=== PATIENT | male | born 1985 | race Two or more races ===

== ENCOUNTER 2016-09-27 14:51 | Inpatient (IN) | payer BC ==
[2016-09-27] MEDS ORDERED: ACETAMINOPHEN 325 MG TAB PO ONE (15:24)
--- NOTE | 2016-09-27 15:28 | Emergency Department Record ---
History of Present Illness - General Chief Complaint: Fever Stated Complaint: FEVER, CHILLS Time Seen by Provider: 09/27/16 15:08 Source: Patient, Family Mode of Arrival: Ambulatory Limitations: No limitations - History of Present Illness Initial Comments: The patient is here due to having a fever and chills for 3 days. The patient has a hx of CML and last had chemo over 4 weeks ago. He has also had a cough with sputum production, a ST, and body aches. The patient did call [facility] and was told to go to the ER for lab work and a CXR. The patient and also deny any GROVER, neck pain or confusion. MD Complaint: Fever, Malaise, Weakness Onset/Timin -: Days(s) Maximum Temperature: 101.7 F Temperature Source: Oral Context: On chemotherapy Associated Symptoms: Chills, Sore throat, Other Treatments Prior to Arrival: Ibuprofen Treatment Prior to Arrival Comment:: Motrin 6:00 am - Related Data Home Medications Medication Instructions Recorded Confirmed Last Taken Acyclovir [Zovirax] 400 mg PO BID 12/10/15 09/27/16 09/27/16 Prochlorperazine Maleate 10 mg PO DAILY PRN 06/07/16 09/27/16 08/17/16 [Compazine] Ponatinib HCl [Iclusig] 30 mg PO DAILY 06/22/16 09/27/16 09/27/16 Morphine Sulfate [Msir] 15 mg PO Q4HR PRN 06/29/16 09/27/16 07/05/16 Lorazepam [Ativan] 2 ml PO QHS 08/20/16 09/27/16 08/19/16 Ibuprofen [Motrin 600Mg] 600 mg PO Q6H 09/27/16 09/27/16 09/27/16 Allergies Allergy/AdvReac Type Severity Reaction Status Date / Time Sulfa (Sulfonamide Allergy SWELLING Verified 09/27/16 14:59 Antibiotics) (GENERAL) Travel Screening - Travel/Exposure Within Last 30 Days Have you traveled within the last 30 days?: No Review of Systems Constitutional: Reports: Chills, Fever, Malaise Eyes: Denies: Eye discharge ENT: Denies: Congestion Respiratory: Reports: Cough. Denies: Dyspnea Past Medical History - SOCIAL HISTORY Smoking Status: Former smoker Alcohol Use: None Drug Use: None - RESPIRATORY Hx Respiratory Disorders: No - CARDIOVASCULAR Hx Cardio Disorders: No - NEURO Hx Neuro Disorders: No - GI Hx GI Disorders: No - Hx Genitourinary Disorders: No - ENDOCRINE Hx Endocrine Disorders: No - MUSCULOSKELETAL Hx Musculoskeletal Disorders: No - PSYCH Hx Psych Problems: No - HEMATOLOGY/ONCOLOGY Hx Hematology/Oncology Disorders: Yes Hx Cancer: Yes (Leukemia) Hx Chemotherapy: Yes (currently) Family Medical History Any Significant Family History?: Yes Hx Cancer: Mother Physical Exam - General General Appearance: Alert, Oriented x3, Cooperative, No acute distress - Head Head exam: Atraumatic, Normocephalic, Normal inspection - Eye Eye exam: Normal appearance, PERRL - ENT Throat exam: Normal inspection. negative: Tonsillar erythema, Tonsillar exudate - Neck Neck exam: Normal inspection, Full ROM. negative: Tenderness - Respiratory Respiratory exam: Normal lung sounds bilaterally. negative: Respiratory distress, Stridor, Wheezes - Cardiovascular Cardiovascular Exam: Regular rate, Normal rhythm, Normal heart sounds - GI/Abdominal GI/Abdominal exam: Soft, Normal bowel sounds. negative: Tenderness - Extremities Extremities exam: Normal inspection, Full ROM, Normal capillary refill. negative: Tenderness - Neurological Neurological exam: Alert, Normal gait. negative: Abnormal gait, Motor sensory deficit Course Vital Signs 09/27/16 14:55 Temperature 100.3 F H Pulse Rate 89 Respiratory 18 Rate Blood Pressure 140/74 Pulse Ox 97 - Reevaluation(s) Reevaluation #1: The patient is doing better. His repeat temp is 100.9 orally. He is feeling better and denies new issues. 09/27/16 16:46 Reevaluation #2: The patient is doing very well at this time. He denies any pain or discomfort. His repeat temp is now 100.6. I did consult with the patient's Oncology Fellow at [facility] and did discuss the labs, UA and xray results. Due to the patient's hx the Fellow felt that he should be treated with IV Abx for Community Acquired Pneumonia and did feel he could be treated here at [facility]. I then did discuss the case with Lucero WATTERS) and she does accept the patient to the hospital. 09/27/16 17:10 Medical Decision Making - Data Complexity MDM Data: Labs Ordered and/or Reviewed, X-Ray Ordered and/or Reviewed - Lab Data Result diagrams: 09/27/16 15:45 09/27/16 15:35 - Radiology Data Radiology results: Report reviewed (CXR: Neg for any acute infiltrate.) Disposition Disposition: Admit Clinical Impression: Pneumonia Qualifiers: Pneumonia type: due to unspecified organism Laterality: unspecified laterality Lung location: unspecified part of lung Qualified Code(s): J18.9 - Pneumonia, unspecified organism Disposition: Still a Patient at [facility] Decision to Admit: Admit from ER Decision to Admit Date: 09/27/16 Decision to Admit Time: 17:15 Accepting Physician: Angela Time Discussed w/Accepting Physician: 17:15 Condition: (2) Stable Forms: Patient Portal Access Time of Disposition: 17:15
[2016-09-27 15:53] LABS: HEMATOCRIT 36.9 % (42.0-52.0); HEMOGLOBIN 12.1 gm/dl (14.0-18.0); MEAN CELL VOLUME 94.4 fl (81-97); MEAN CORPUSCULAR HEMOGLOBIN 30.9 pg (27-33); MEAN CORPUSCULAR HGB CONC 32.8 g/dl (32-36); MEAN PLATELET VOLUME 12.5 fl (7.4-10.4); PLATELET COUNT 96 K/uL (130-400); RED BLOOD COUNT 3.91 M/uL (4.40-5.70); RED CELL DISTRIBUTION WIDTH 14.9 % (11.5-14.5); WHITE BLOOD COUNT W/O DIFF 10.1 K/uL (4.2-12.2)
[2016-09-27] MEDS ORDERED: IBUPROFEN 600 MG TABLET PO ONE (15:55)
[2016-09-27 16:07] LABS: ANION GAP 15.9 (7-16); BLOOD UREA NITROGEN 11 mg/dL (9-20); C-REACTIVE PROTEIN 4.2 mg/dL (0.0-0.9); CARBON DIOXIDE 24.1 mmol/L (22-30); CREATININE 0.8 mg/dL (0.66-1.25); EST GLOMERULAR FILTRATION RATE > 60 ml/min; GLUCOSE,RANDOM 98 mg/dL (70-110)
[2016-09-27 16:20] LABS: URINE APPEARANCE CLEAR; URINE BILIRUBIN NEGATIVE (NEGATIVE); URINE BLOOD NEGATIVE (NEGATIVE); URINE COLOR YELLOW; URINE GLUCOSE (UA) NEGATIVE (NEGATIVE); URINE KETONE NEGATIVE (NEGATIVE); URINE LEUKOCYTE ESTERASE NEGATIVE (NEGATIVE); URINE NITRITE NEGATIVE (NEGATIVE); URINE PROTEIN NEGATIVE (NEGATIVE); URINE UROBILINOGEN 0.2 E.U./dL (0.20 - 1.00)
[2016-09-27] MEDS ORDERED: 0.9 % SODIUM CHLORIDE 1,000 ML BAG IV ONE (16:23)
[2016-09-27 16:33] LABS: ANISOCYTOSIS 1+; PLATELET ESTIMATE DECREASED (NORMAL)
[2016-09-27] MEDS ORDERED: CEFTRIAXONE SODIUM 1 GM in 0.9 % SODIUM CHLORIDE 100ML 100 ML IVPB ONE (16:56)
[2016-09-27] MEDS ORDERED: PROCHLORPERAZINE MALEATE 10 MG TABLET PO PRN (17:59)
[2016-09-27] MEDS ORDERED: AZITHROMYCIN 500 MG in 0.9 % SODIUM CHLORIDE 250ML 250 ML IVPB SCH (17:59)
[2016-09-27] MEDS: CEFTRIAXONE SODIUM 1 GM in 0.9 % SODIUM CHLORIDE 100ML 100 ML IVPB SCH (18:09)
[2016-09-27] MEDS ORDERED: PONATINIB HCL PO SCH (21:00)
[2016-09-27] MEDS: PONATINIB PO SCH (21:26)
[2016-09-27] MEDS: ACYCLOVIR 200 MG CAPSULE PO SCH (21:30)
[2016-09-27] MEDS ORDERED: LORAZEPAM PO SCH (22:00)
[2016-09-28] MEDS: MORPHINE SULFATE 15 MG TABLET PO PRN ×3 (00:49→12:08)
[2016-09-28] MEDS: 0.9 % SODIUM CHLORIDE 1000ML 1,000 ML IV PRN ×2 (00:50→18:10)
[2016-09-28] MEDS: CEFTRIAXONE SODIUM 1 GM in 0.9 % SODIUM CHLORIDE 100ML 100 ML IVPB SCH ×2 (05:58→18:00)
[2016-09-28] MEDS: ACETAMINOPHEN 500 MG TABLET PO PRN ×2 (06:00→14:14)
[2016-09-28 06:30] LABS: HEMATOCRIT 34.3 % (42.0-52.0); MEAN CELL VOLUME 94.5 fl (81-97); MEAN CORPUSCULAR HEMOGLOBIN 30.3 pg (27-33); MEAN CORPUSCULAR HGB CONC 32.1 g/dl (32-36); PLATELET COUNT 90 K/uL (130-400); RED BLOOD COUNT 3.63 M/uL (4.40-5.70); RED CELL DISTRIBUTION WIDTH 14.9 % (11.5-14.5); WHITE BLOOD COUNT W/O DIFF 7.8 K/uL (4.2-12.2)
[2016-09-28 06:45] LABS: ALB/GLOB RATIO 1.7 (1.1-1.8); ALBUMIN 4.1 gm/dL (3.5-5.0); ALKALINE PHOSPHATASE 82 U/L (38-126); ALT/SGPT 46 U/L (21-72); ANION GAP 13.6 (7-16); AST/SGOT 25 U/L (17-59); BILIRUBIN,TOTAL 0.13 mg/dL (0.2-1.3); BLOOD UREA NITROGEN 9 mg/dL (9-20); CARBON DIOXIDE 23.4 mmol/L (22-30); CREATININE 0.6 mg/dL (0.66-1.25); EST GLOMERULAR FILTRATION RATE > 60 ml/min; GLUCOSE,RANDOM 109 mg/dL (70-110); TOTAL PROTEIN 6.5 gm/dL (6.3-8.2)
[2016-09-28 06:56] LABS: PLATELET ESTIMATE DECREASED (NORMAL)
--- NOTE | 2016-09-28 07:30 | RADIOLOGY REPORT ---
EXAM: CHEST, TWO VIEWS HISTORY: FEVER, CHILLS, NONPRODUCTIVE COUGH FOR THREE DAYS. TECHNIQUE: Two views of the chest were obtained. Comparison: Chest x-ray 12/10/15. FINDINGS: Blunting of the costophrenic angles consistent with small pleural effusions. No consolidative change. The cardiomediastinal silhouette, diaphragm, and osseous structures are unremarkable. IMPRESSION: NEW SMALL BILATERAL PLEURAL EFFUSIONS. RECOMMEND FOLLOW-UP. JOB NUMBER: [id number] [facility]
--- NOTE | 2016-09-28 09:46 | History & Physical ---
History of Present Illness - Date of Service Date of Service for History & Physical: 09/28/16 - History of Present Illness Admitting Diagnosis: 1. Community Acquired Pneumonia with Pyrexia History of Present Illness: 31yo male with CC of fever. He has a history of CML for which he is receiving treatment at [facility] currently and is a former smoker. Patient reports feeling chilled and warm starting two days ago. His took his temperature and found him to have a fever of 101 that did resolve with some otc medication. They decided to give it a little more time and see if he would spike another temp which he did yesterday. he also began to have cough productive of sputum and sore throat. His called his oncologist, Dr. Elizalde and he recommended that he be evaluated in the ED. While in the ED, patient was found to have fever of 103 which improved with Tylenol. Patient had CXR which showed small b/l pleural effusions but no other acute process. CBC showed improved WBC, hgb and platelet count from previous visits. His CRP was elevated at 4.2. CMP was unremarkable. UA was negative. Blood cultures obtained. Dr. Saini did speak with oncologist on-call who recommended initiation of empiric therapy for CAP with rocephin and azithromycin. Patient was started on Iv antibiotics and admitted. 09/28/16- Patient states he is feeling better today. He says he is not feeling nearly as achey. He does report bilateral ear pain and some sore throat. He is not feeling short of breath, having nausea, abdominal pain or diarrhea. His appetite was improved this morning and he is tolerating PO fluids. Oncologist: Dr. Elizalde [facility] Travel Screening - Travel/Exposure Within Last 30 Days Have you traveled within the last 30 days?: No - Travel/Exposure Within Last Year Have you traveled outside the [place] in the last year?: No - Additonal Travel Details Have you been exposed to anyone with a communicable illness?: Yes Exposure Details:: common cold - Travel Symptoms Symptom Screening: Fever (GT 100.4) Review of Systems Constitutional: Reports: Chills, Fever, Malaise Eyes: Denies: Eye discharge ENT: Denies: Congestion Respiratory: Reports: Cough. Denies: Dyspnea Cardiovascular: Denies: Arrhythmia, Chest pain, Dyspnea on exertion Endocrine: Denies: Fatigue Gastrointestinal: Denies: Abdominal pain, Diarrhea, Nausea, Vomiting Musculoskeletal: Reports: Myalgia Skin: Denies: Bruising, Change in color Neurological: Denies: Abnormal gait, Confusion, Headache Psychiatric: Denies: Anxiety, Depression Hematological/Lymphatic: Reports: Anemia. Denies: Blood Clots Past Medical History - SOCIAL HISTORY Smoking Status: Former smoker Alcohol Use: Rare Drug Use: None - RESPIRATORY Hx Respiratory Disorders: No - CARDIOVASCULAR Hx Cardio Disorders: No Comment:: bradycardia with sleep - NEURO Hx Neuro Disorders: No - GI Hx GI Disorders: No - Hx Genitourinary Disorders: No - ENDOCRINE Hx Endocrine Disorders: No - MUSCULOSKELETAL Hx Musculoskeletal Disorders: No - PSYCH Hx Psych Problems: No - HEMATOLOGY/ONCOLOGY Hx Hematology/Oncology Disorders: Yes Hx Anemia: Yes Hx Cancer: Yes (Leukemia- CML) Hx Chemotherapy: Yes (currently) Hx Blood Transfusions: Yes (platelets and PRBC) Hx Blood Transfusion Reaction: No Family Medical History Any Significant Family History?: Yes Hx Cancer: Mother H&P Meds/Allergies - Allergies Allergies: Allergies Allergy/AdvReac Type Severity Reaction Status Date / Time Sulfa (Sulfonamide Allergy SWELLING Verified 09/27/16 14:59 Antibiotics) (GENERAL) - Home Medications Home Medications Medication Instructions Recorded Confirmed Last Taken Acyclovir [Zovirax] 400 mg PO BID 12/10/15 09/27/16 09/27/16 Prochlorperazine Maleate 10 mg PO DAILY PRN 06/07/16 09/27/16 08/17/16 [Compazine] Ponatinib HCl [Iclusig] 30 mg PO DAILY 06/22/16 09/27/16 09/27/16 Morphine Sulfate [Msir] 15 mg PO Q4HR PRN 06/29/16 09/27/16 07/05/16 Ibuprofen [Motrin 600Mg] 600 mg PO Q6H 09/27/16 09/27/16 09/27/16 - Active Medications Active Medications: Current Medications Acetaminophen (Tylenol 500mg Tab) 1,000 mg PO Q6H PRN PRN Reason: PAIN/TEMP Last Admin: 09/28/16 06:00 Dose: 1,000 mg Acyclovir (Zovirax) 400 mg PO BID EKTA Last Admin: 09/27/16 21:30 Dose: 400 mg Ceftriaxone Sodium 1 gm/ (Sodium Chloride) 100 mls @ 100 mls/hr IVPB Q12H EKTA Stop: 10/02/16 18:00 Last Admin: 09/28/16 05:58 Dose: 100 mls/hr Sodium Chloride () 1,000 mls @ 100 mls/hr IV .Q10H PRN PRN Reason: LARGE VOLUME IV Last Admin: 09/28/16 00:50 Dose: 100 mls/hr Azithromycin 500 mg/ Sodium (Chloride) 250 mls @ 250 mls/hr IVPB Q24H [facility] Stop: 10/03/16 19:01 Morphine Sulfate (Msir) 15 mg PO Q4HR PRN PRN Reason: Pain - General Stop: 10/04/16 18:00 Last Admin: 09/28/16 06:05 Dose: 15 mg Patient Own Med: (Ponatinib 15 Mg) 2 each PO 2100 EKTA Last Admin: 09/27/16 21:26 Dose: 2 each Prochlorperazine Maleate (Compazine) 10 mg PO DAILY PRN PRN Reason: NAUSEA Physical Exam - Vital Signs Vital Signs: Vital Signs - Last 24 Hrs Temp Pulse Resp BP Pulse Ox 09/28/16 09:10 97.9 F 09/28/16 06:42 101.1 F H 09/28/16 06:00 102.6 F H 86 20 135/69 95 09/27/16 22:40 98.8 F 72 16 121/61 98 09/27/16 18:31 88 20 09/27/16 18:11 100.5 F H 09/27/16 18:05 99.5 F 91 H 18 136/68 97 - General General Appearance: Alert, Oriented x3, Cooperative, No acute distress Limitations: No limitations - Head Head exam: Atraumatic, Normocephalic, Normal inspection - Eye Eye exam: Normal appearance, PERRL - ENT Throat exam: Normal inspection. negative: Tonsillar erythema, Tonsillar exudate - Neck Neck exam: Normal inspection, Full ROM. negative: Tenderness - Respiratory Respiratory exam: Normal lung sounds bilaterally. negative: Respiratory distress, Stridor, Wheezes - Cardiovascular Cardiovascular Exam: Regular rate, Normal rhythm, Normal heart sounds Peripheral Pulses: 2+: Radial (R), Radial (L), Dorsalis Pedis (R), Dorsalis Pedis (L) - GI/Abdominal GI/Abdominal exam: Soft, Normal bowel sounds. negative: Tenderness - Rectal Rectal exam: Deferred - Extremities Extremities exam: Normal inspection, Full ROM, Normal capillary refill. negative: Tenderness - Neurological Neurological exam: Alert, Normal gait. negative: Abnormal gait, Motor sensory deficit Results - Labs Result Diagrams: 09/28/16 05:55 09/28/16 05:55 Labs Last 24 Hours: Laboratory Results - last 24 hr 09/28/16 09/28/16 05:55 05:55 WBC 7.8 RBC 3.63 L Hgb 11.0 L Hct 34.3 L MCV 94.5 MCH 30.3 MCHC 32.1 RDW 14.9 H Plt Count 90 L Neutrophils % 58.0 Band Neutrophils % 5.0 Lymphocytes % 26.0 Monocytes % 11.0 H Eosinophils % Not Reportable Basophils % Not Reportable Platelet Estimate Decreased RBC Morphology Normal Sodium 138 Potassium 4.2 Chloride 101 Carbon Dioxide 23.4 Anion Gap 13.6 BUN 9 Creatinine 0.6 L Estimated GFR > 60 Random Glucose 109 Calcium 8.6 Total Bilirubin 0.13 L AST 25 ALT 46 Alkaline Phosphatase 82 Total Protein 6.5 Albumin 4.1 Globulin 2.4 Albumin/Globulin Ratio 1.7 - Imaging and Cardiology Chest x-ray Status: Report reviewed (b/l small pleural effusions) VTE H&P Assessment - Risk for VTE Risk for VTE: Yes Risk Level: Moderate Risk Assessment Date: 09/28/16 Risk Assessment Time: 14:39 VTE Orders Placed or Will Be Placed: No VTE Reason for No Prophylaxis: Contraindicated (plt count <100,000) Plan - Detailed Diagnosis and Plan (1) Fever Current Visit: Yes Status: Acute Qualifiers: Fever type: unspecified Qualified Code(s): R50.9 - Fever, unspecified Base Code: R50.9 - FEVER, UNSPECIFIED Comment: 09/28/16- Tmax of 103 upon admission. Patient was afebrile through the evening but spiked a fever this morning of 102.6 that improved with tylenol. CXR showed b/l small pleural effusions but no obvious airspace disease, UA negative for infection. Blood cultures obtained and pending. Patient started on empiric abx as recommended by oncologist. WBC count stable at 7.8. CRP up to 6.3 from 4.2 in patient with known malignancy. Last Chemo treatment was 4 weeks ago at [facility] with Dr. Elizalde. -ordered influenza screen, which returned negative. Fever could still be 2/2 viral URI. -Will continue empiric CAP coverage with Rocephin 1gm IV q24H and azithromycin 250mg IV daily. -Left message on M-line for Dr. Elizalde to update him on patient's clinical course -repeat labs qam (2) Leukemia Current Visit: Yes Status: Acute Qualifiers: Leukemia type: chronic, unspecified type Leukemia Active/Remission status: relapsed Qualified Code(s): C95.12 - Chronic leukemia of unspecified cell type, in relapse Base Code: C95.90 - LEUKEMIA, UNSPECIFIED NOT HAVING ACHIEVED REMISSION Comment: 09/28/16- patient currently being treated for CML with Dr. Elizalde. Last chemotherapy date was 4 weeks ago per patient's -continue Iclusig as prescribed by Dr. Elizalde (3) Full code status Current Visit: Yes Status: Acute Base Code: Z78.9 - OTHER SPECIFIED HEALTH STATUS Comment: 09/28/16- Patient is full code status (4) DVT prophylaxis Current Visit: Yes Status: Acute Base Code: [id number] - Comment: 09/28/16-
[2016-09-28 09:53] LABS: INFLUENZA A NEGATIVE (NEGATIVE); INFLUENZA B NEGATIVE (NEGATIVE)
[2016-09-28] MEDS ORDERED: PONATINIB HCL PO SCH (10:00)
[2016-09-28] MEDS: ACYCLOVIR 200 MG CAPSULE PO SCH ×3 (11:10→22:59)
[2016-09-28] MEDS ORDERED: AZITHROMYCIN 500 MG in 0.9 % SODIUM CHLORIDE 250ML 250 ML IVPB SCH (19:00)
[2016-09-28] MEDS: PONATINIB PO SCH (20:55)
[2016-09-29] MEDS: 0.9 % SODIUM CHLORIDE 1000ML 1,000 ML IV PRN (02:10)
[2016-09-29] MEDS: CEFTRIAXONE SODIUM 1 GM in 0.9 % SODIUM CHLORIDE 100ML 100 ML IVPB SCH (06:20)
[2016-09-29 06:59] LABS: ALB/GLOB RATIO 1.6 (1.1-1.8); ALBUMIN 4.2 gm/dL (3.5-5.0); ALKALINE PHOSPHATASE 75 U/L (38-126); ALT/SGPT 41 U/L (21-72); AST/SGOT 29 U/L (17-59); BLOOD UREA NITROGEN 6 mg/dL (9-20); CREATININE 0.6 mg/dL (0.66-1.25); EST GLOMERULAR FILTRATION RATE > 60 ml/min; GLUCOSE,RANDOM 95 mg/dL (70-110); TOTAL PROTEIN 6.8 gm/dL (6.3-8.2)
[2016-09-29 07:10] LABS: HEMATOCRIT 35.9 % (42.0-52.0); HEMOGLOBIN 11.4 gm/dl (14.0-18.0); MEAN CELL VOLUME 93.5 fl (81-97); MEAN CORPUSCULAR HGB CONC 31.8 g/dl (32-36); MEAN PLATELET VOLUME 12.9 fl (7.4-10.4); PLATELET COUNT 88 K/uL (130-400); RED BLOOD COUNT 3.84 M/uL (4.40-5.70); RED CELL DISTRIBUTION WIDTH 14.5 % (11.5-14.5)
[2016-09-29 07:17] LABS: MEAN CORPUSCULAR HEMOGLOBIN 29.6 pg (27-33)
[2016-09-29 07:41] LABS: PLATELET ESTIMATE DECREASED (NORMAL)
[2016-09-29] MEDS: ACETAMINOPHEN 500 MG TABLET PO PRN ×2 (07:50→15:12)
[2016-09-29] MEDS ORDERED: AZITHROMYCIN 500 MG TABLET PO SCH (10:00)
[2016-09-29] MEDS: ACYCLOVIR 200 MG CAPSULE PO SCH (11:09)
[2016-09-29] MEDS ORDERED: CEFTRIAXONE SODIUM 1 GM in 0.9 % SODIUM CHLORIDE 100ML 100 ML IVPB ONE (14:58)
--- NOTE | 2016-09-29 17:52 | Discharge Note ---
Discharge Note - Date Date of Discharge Note: 09/29/16 Disposition: Home, Self-Care Condition: (1) Good Additional Instructions: follow up with oncology wednesday as scheduled follow up with Dr. Farmer if trouble before seeing oncology. Prescriptions: Cephalexin [Keflex] 500 mg PO QID #40 cap Azithromycin [Zithromax] 500 mg PO DAILY #10 tab Forms: Patient Portal Access Activity at Discharge: Increase Activity as Tolerated
--- NOTE | 2016-09-30 16:29 | Discharge Summary ---
DATE OF DISCHARGE: 09/29/16 DISCHARGE DIAGNOSES: 1. BRONCHITIS. 2. POSSIBLE PNEUMONIA; X-RAY IS NEGATIVE. 3. CHRONIC MYELOCYTIC LEUKEMIA. 4. PHARYNGITIS. ATTENDING PHYSICIAN: Augie Farmer D.O. taking over from Dr. Delcid on the day of discharge. REASON FOR HOSPITALIZATION: This patient had a fever, chills for three days. The patient has a history of CML; last chemo treatment was four weeks ago. He also has an acute cough with sputum production, a sore throat, and body aches. The patient called the oncologist at [facility] and they said to go to the Emergency Department at [place] and the patient had a chest x-ray, which was negative for pneumonia, a urine, which was negative. Influenza A and B was negative. His electrolytes were good. C-reactive protein slightly elevated at 4.2, trended up to 7.0. His WBC was 10,100, hemoglobin was 12.1. The platelet count was 96,000. His segs were 67%, lymphs were 15, monos were 18. On the day of discharge, WBC was 5,000, hemoglobin was 11.4, platelet count is 88,000, his segs were 53, bands were 3, lymphs were 34, monos were 10. BUN is 6, creatinine is 0.6. The patient was hospitalized after talking to Oncology who felt he could be kept here with blood cultures obtained and at my evaluation, the patient stated he is feeling much better and would like to go home. I talked to the , Marleny, and thought it would be best to wait for the blood cultures to come back. They do not want to wait so at this point, we will send him home with some reservation, however, with outpatient antibiotics and to follow-up with Oncology or myself if he gets into trouble between now and when his oncology appointment is in three days on Wednesday, which would be October 02. THERAPY PROVIDED: The patient was given IV Rocephin 1 gram every 12 hours, Azithromycin 500 mg every day. The patient is feeling better, up and eating better, moving around the room nicely, and would like to go home. He feels that he could manage at home. CONDITION AT DISCHARGE: Improved. DISCHARGE INSTRUCTIONS: Follow-up with Oncology on October 02. Follow-up with myself if he has trouble between now and Oncology's scheduled appointment on October 02; in three days. We will send him home with Keflex 500 mg q.i.d. #40 pills for 10 days and Azithromycin 500 mg every day for 10 days. He is to continue his home medications of: Ponatinib 30 mg every day Acyclovir 400 mg b.i.d. He also has Compazine prn, Motrin prn, MSIR 15 mg every four hours prn, and Tylenol prn. The blood cultures are pending and no growth after the two days he was here. Augie Farmer D.O. Date & Time JOB NUMBER: [id number] [facility]
== END 2016-09-29 18:22 | disposition home or self-care (01) | DRG 194 ==
LOC: ER 14:51 → OBSVTOIN 17:51 → MEDSURG 17:51
PROVIDERS: ADMIT Family Medicine; ATTEND Family Medicine
DX: J18.9 Pneumonia, unspecified organism (principal); C95.12 Chronic leukemia of unspecified cell type, in relapse; C94.80 Other specified leukemias not having achieved remission; Z78.9 Other specified health status; J02.9 Acute pharyngitis, unspecified
CPT/HCPCS: 71020; 80048; 80053; 81003; 85027; 86140; 87400; 96365; 99223; 99239; 99285; J0456; J7030; J7050

== ENCOUNTER 2017-04-14 22:56 | Emergency (ER) | payer BC ==
--- NOTE | 2017-04-14 23:18 | Emergency Department Record ---
History of Present Illness - General Chief Complaint: Palpitations Stated Complaint: PALPITATIONS Time Seen by Provider: 04/14/17 23:12 Source: Patient Mode of Arrival: Ambulatory Limitations: No limitations - History of Present Illness Initial Comments: 31 yo male presents to ED with a CC of "palpitations" and that his heart just "doesn't feel right". Patient denies chest pain or difficulty in breathing symptoms. Patient does report that he is being treated for CML for the past 1.5 years through [facility]. Patient denies fevers, chills, or recent illness. MD Complaint: Palpitations Onset/Timin -: Days(s) Associated Symptoms: Denies other symptoms - Related Data Home Medications Medication Instructions Recorded Confirmed Last Taken Prochlorperazine Maleate 10 mg PO DAILY PRN 06/07/16 04/14/17 08/17/16 [Compazine] Ponatinib HCl [Iclusig] 30 mg PO DAILY 06/22/16 04/14/17 09/27/16 Morphine Sulfate [Msir] 15 mg PO Q4HR PRN 06/29/16 04/14/17 07/05/16 Previous Rx's Medication Instructions Recorded Acetaminophen [Tylenol 500Mg Tab] 1,000 mg PO Q6H PRN #0 tablet 09/29/16 Allergies Allergy/AdvReac Type Severity Reaction Status Date / Time Sulfa (Sulfonamide Allergy SWELLING Verified 09/27/16 14:59 Antibiotics) (GENERAL) Travel Screening - Travel/Exposure Within Last 30 Days Have you traveled within the last 30 days?: No Review of Systems Constitutional: Denies: Chills, Fever, Malaise, Night sweats Eyes: Denies: Eye discharge, Eye pain ENT: Denies: Congestion, Ear pain, Epistaxis Respiratory: Denies: Cough, Dyspnea Cardiovascular: Reports: Palpitations. Denies: Chest pain, Dyspnea on exertion Endocrine: Denies: Fatigue, Heat or cold intolerance Gastrointestinal: Denies: Abdominal pain, Nausea, Vomiting Genitourinary: Denies: Incontinence, Retention Musculoskeletal: Denies: Arthralgia, Back pain, Gout, Joint swelling Skin: Denies: Bruising, Change in color Neurological: Denies: Abnormal gait, Confusion, Headache, Seizure Psychiatric: Denies: Anxiety Hematological/Lymphatic: Denies: Anemia, Blood Clots Past Medical History - SOCIAL HISTORY Smoking Status: Former smoker Alcohol Use: None Drug Use: None - RESPIRATORY Hx Respiratory Disorders: No - CARDIOVASCULAR Hx Cardio Disorders: No Comment:: bradycardia with sleep - NEURO Hx Neuro Disorders: No - GI Hx GI Disorders: No - Hx Genitourinary Disorders: No - ENDOCRINE Hx Endocrine Disorders: No - MUSCULOSKELETAL Hx Musculoskeletal Disorders: No - PSYCH Hx Psych Problems: No - HEMATOLOGY/ONCOLOGY Hx Hematology/Oncology Disorders: Yes Hx Anemia: Yes Hx Cancer: Yes (Leukemia- CML) Hx Chemotherapy: Yes (currently) Hx Blood Transfusions: Yes (platelets and PRBC) Hx Blood Transfusion Reaction: No Family Medical History Any Significant Family History?: Yes Hx Cancer: Mother Physical Exam - General General Appearance: Alert, Oriented x3, Cooperative, No acute distress Limitations: No limitations - Head Head exam: Atraumatic, Normocephalic, Normal inspection Head exam detail: negative: Abrasion, Contusion, Loredo's sign, General tenderness, Hematoma, Laceration - Eye Eye exam: Normal appearance. negative: Conjunctival injection, Periorbital swelling, Periorbital tenderness, Scleral icterus - ENT Ear exam: negative: Auricular hematoma, Auricular trauma Nasal Exam: negative: Active bleeding, Discharge, Dried blood, Foreign body Mouth exam: negative: Drooling, Laceration, Muffled voice, Tongue elevation - Neck Neck exam: Normal inspection. negative: Meningismus, Tenderness - Respiratory Respiratory exam: Normal lung sounds bilaterally. negative: Rales, Respiratory distress, Rhonchi, Stridor - Cardiovascular Cardiovascular Exam: Irregular rhythm - GI/Abdominal GI/Abdominal exam: Soft. negative: Rebound, Rigid, Tenderness - Rectal Rectal exam: Deferred - exam: Deferred - Extremities Extremities exam: Normal inspection. negative: Calf tenderness, Pedal edema, Tenderness - Back Back exam: Denies: CVA tenderness (R), CVA tenderness (L) - Neurological Neurological exam: Alert, Normal gait, Oriented X3 - Psychiatric Psychiatric exam: Normal affect, Normal mood - Skin Skin exam: Normal color. negative: Abrasion Type of lesion: negative: abrasion Course Vital Signs 04/14/17 23:09 Temperature 97.8 F Pulse Rate [ 94 H Pulse Ox Probe] Respiratory 18 Rate Blood Pressure 100/79 [Left Arm] Pulse Ox 99 - Reevaluation(s) Reevaluation #1: 04/14/17 23:17 EKG: Atrial Fibrillation 117 Normal axis, irregular R-R intervals No acute ST-T wave changes are present Reevaluation #2: 04/15/17 00:09 Labs reviewed, TSH 5.48, CK 695 with normal MB fraction, normal Troponin. Transfer options were discussed with both the patient and his , will transfer to [facility] for cardiac evaluation. Reevaluation #3: 04/15/17 00:16 Case was discussed with Dr. Paz, will accept transfer at this time. Medical Decision Making - Lab Data Result diagrams: 04/14/17 23:18 04/14/17 23:18 Disposition Disposition: Transfer Clinical Impression: CML (chronic myelocytic leukemia) Atrial fibrillation Qualifiers: Atrial fibrillation type: unspecified Qualified Code(s): I48.91 - Unspecified atrial fibrillation Disposition: Acute Care Hospital Transfer Transfer To: [facility] Reason For Transfer: Cardiac evaluation Accepting Physician: Brandi Time Discussed w/Accepting Physician: 00:16 Condition: (2) Stable Forms: Patient Portal Access Time of Disposition: 00:17 Quality - Quality Measures Quality Measures: N/A - Blood Pressure Screening Blood Pressure Classification: Normal BP Reading Systolic Measurement: 115 Diastolic Measurement: 70 Screening for High Blood Pressure: < Normal BP, F/U Not Required > [G8783] Normal BP Follow-up Interventions: No follow-up required
[2017-04-14 23:35] LABS: ALB/GLOB RATIO 1.8 (1.1-1.8); ALBUMIN 4.8 gm/dL (3.5-5.0); ALKALINE PHOSPHATASE 66 U/L (38-126); ALT/SGPT 48 U/L (21-72); ANION GAP 12.6 (7-16); AST/SGOT 33 U/L (17-59); BILIRUBIN,TOTAL 0.87 mg/dL (0.2-1.3); BLOOD UREA NITROGEN 19 mg/dL (9-20); CARBON DIOXIDE 26.4 mmol/L (22-30); CREATINE PHOSPHOKINASE 695 U/L (55-170); CREATININE 0.8 mg/dL (0.66-1.25); EST GLOMERULAR FILTRATION RATE > 60 ml/min; GLUCOSE,RANDOM 90 mg/dL (70-110); TOTAL PROTEIN 7.4 gm/dL (6.3-8.2)
[2017-04-14 23:40] LABS: HEMATOCRIT 45.6 % (42.0-52.0); HEMOGLOBIN 15.6 gm/dl (14.0-18.0); MEAN CELL VOLUME 83.8 fl (81-97); MEAN CORPUSCULAR HEMOGLOBIN 28.7 pg (27-33); MEAN CORPUSCULAR HGB CONC 34.2 g/dl (32-36); MEAN PLATELET VOLUME 12.4 fl (7.4-10.4); PLATELET COUNT 123 K/uL (130-400); RED BLOOD COUNT 5.44 M/uL (4.40-5.70); RED CELL DISTRIBUTION WIDTH 17.6 % (11.5-14.5)
[2017-04-14 23:47] LABS: CKMB 3.1 ug/L (0-6)
[2017-04-14 23:57] LABS: TROPONIN I < 0.012 ng/mL (0.00-0.034)
[2017-04-15 00:06] LABS: THYROID STIMULATING HORMONE 5.48 uIU/ml (0.465-4.68)
== END 2017-04-15 00:54 | disposition short-term general hospital (02) ==
LOC: ER 22:56
DX: I48.91 Unspecified atrial fibrillation (principal); C92.10 Chronic myeloid leukemia, BCR/ABL-positive, not having achieved remission; F17.210 Nicotine dependence, cigarettes, uncomplicated
CPT/HCPCS: 80053; 82550; 82553; 84443; 84484; 85027; 85379; 93005; 93010; 99285

== ENCOUNTER 2017-05-09 04:37 | Emergency (ER) | payer BC ==
--- NOTE | 2017-05-09 04:54 | Emergency Department Record ---
History of Present Illness - General Chief complaint: ENT Stated complaint: EAR PAIN Time Seen by Provider: 05/09/17 04:52 Source: Patient Mode of Arrival: Ambulatory Limitations: No limitations - History of Present Illness Initial comments: The patient is here due to a 2 week hx of R ear pain. The pain onset was gradual and then slowly worsened. He denies any fever, chills, ST, cough, or drainage from the ear. The patient has no hx of similar problems and never has had a TM perforation. The patient also denies any GROVER or neck pain. MD complaint: Ear pain Onset/Timin -: Week(s) Location: R ear Severity scale (1-10): 10 Quality: Aching Consistency: Constant, Getting worse Associated Symptoms: Hearing loss - Related Data Home Medications Medication Instructions Recorded Confirmed Last Taken Apixaban [Eliquis] 5 mg PO BID 05/09/17 05/09/17 Unknown Aspirin [Aspir-Low] 81 mg PO DAILY 05/09/17 05/09/17 05/08/17 Previous Rx's Medication Instructions Recorded Acetaminophen [Tylenol 500Mg Tab] 1,000 mg PO Q6H PRN #0 tablet 09/29/16 Amoxicillin/Potassium Clav 1 tab PO BID #14 tab 05/09/17 [Augmentin 875-125 Tablet] Neomycin/Polymyxin B Sulf/Hc 4 drop OT QID #1 btl 05/09/17 [Cortisporin Otic] Allergies Allergy/AdvReac Type Severity Reaction Status Date / Time Sulfa (Sulfonamide Allergy SWELLING Verified 09/27/16 14:59 Antibiotics) (GENERAL) Travel Screening - Travel/Exposure Within Last 30 Days Have you traveled within the last 30 days?: No - Travel Symptoms Symptom Screening: None Review of Systems Constitutional: Denies: Chills, Fever Eyes: Denies: Eye discharge ENT: Reports: Ear pain. Denies: Throat pain Respiratory: Denies: Cough Past Medical History - SOCIAL HISTORY Smoking Status: Former smoker - RESPIRATORY Hx Respiratory Disorders: No - CARDIOVASCULAR Hx Cardio Disorders: Yes Hx Irregular Heartbeat: Yes (1 episode of A-fib) Comment:: bradycardia with sleep - NEURO Hx Neuro Disorders: No - GI Hx GI Disorders: No - Hx Genitourinary Disorders: No - ENDOCRINE Hx Endocrine Disorders: No - MUSCULOSKELETAL Hx Musculoskeletal Disorders: No - PSYCH Hx Psych Problems: No - HEMATOLOGY/ONCOLOGY Hx Hematology/Oncology Disorders: Yes Hx Anemia: Yes Hx Cancer: Yes (Leukemia- CML) Hx Chemotherapy: Yes (currently) Hx Blood Transfusions: Yes (platelets and PRBC) Hx Blood Transfusion Reaction: No Family Medical History Any Significant Family History?: Yes Hx Cancer: Mother Physical Exam - General General Appearance: Alert, Oriented x3, Cooperative, No acute distress - Head Head exam: Atraumatic - Eye Eye exam: Normal appearance, PERRL - ENT ENT exam: Normal orophraynx, Other (There is no mastoid tenderness.). negative : Normal exam, Normal external ear exam (There is edema and trace erythema to the outside of the ear canal minimally.), TM's normal bilaterally (The L TM is normal. The R TM is difficult to visualize due to the edema.) Ear exam: External canal tenderness (There is swelling and edema and erythema to the R ear canal.). negative: Normal external inspection Throat exam: Normal inspection. negative: Tonsillar erythema, Tonsillar exudate - Neck Neck exam: Normal inspection, Full ROM. negative: Lymphadenopathy, Meningismus (The neck is very supple.), Tenderness - Respiratory Respiratory exam: Normal lung sounds bilaterally. negative: Respiratory distress - Cardiovascular Cardiovascular Exam: Regular rate, Normal rhythm, Bradycardia (Chronic per patient.) - GI/Abdominal GI/Abdominal exam: Soft, Normal bowel sounds. negative: Tenderness - Extremities Extremities exam: Normal inspection, Full ROM, Normal capillary refill. negative: Tenderness - Neurological Neurological exam: Alert, Normal gait. negative: Abnormal gait, Motor sensory deficit Course Vital Signs 05/09/17 04:43 Temperature 97.6 F Pulse Rate [ 41 L Pulse Ox Probe] Respiratory 20 Rate Blood Pressure 137/98 [Left Arm] Pulse Ox 99 - Reevaluation(s) Reevaluation #1: I did explain the need for close F/U with his PCP and did stress the need for an appointment early this week with Dr. Farmer. 05/09/17 05:10 Reevaluation #2: The patient is doing much better at this time. His pain is much improved and he is ready for home. 05/09/17 05:45 Medical Decision Making - Lab Data Result diagrams: 05/09/17 05:16 Disposition Disposition: Discharge Clinical Impression: External otitis of right ear Qualifiers: Otitis externa type: unspecified type Chronicity: acute Qualified Code(s): H60.501 - Unspecified acute noninfective otitis externa, right ear Disposition: Home, Self-Care Condition: (1) Good Instructions: Otitis Externa (ED) Additional Instructions: Please use Tylenol or Motrin for pain and please continue the Augmentin and Cortisporin as directed. Please see Dr. Farmer in the office in 1-2 days for recheck. Return to the ER for any increased pain, swelling, fever, or vomiting. Prescriptions: Amoxicillin/Potassium Clav [Augmentin 875-125 Tablet] 1 tab PO BID #14 tab Neomycin/Polymyxin B Sulf/Hc [Cortisporin Otic] 4 drop OT QID #1 btl Forms: Patient Portal Access Time of Disposition: 05:14 Quality - Quality Measures Quality Measures: N/A - Blood Pressure Screening View Details: Yes Does Patient Have Any of the Following: No Blood Pressure Classification: Hypertensive Reading Systolic Measurement: 137 Diastolic Measurement: 98 Screening for High Blood Pressure: < Pre-Hypertensive BP, F/U Documented > [ G8950] Pre-Hypertensive Follow-up Interventions: Referral to alternative/primary care provider.
[2017-05-09] MEDS: AMOXICILLIN/POTASSIUM CLAV 875MG/125MG TABLET PO ONE (05:03)
[2017-05-09] MEDS: IBUPROFEN 600 MG TABLET PO ONE (05:03)
[2017-05-09] MEDS: NEOMYCIN/POLYMYXIN B SULF/HC 10ML BTL OT ONE (05:04)
[2017-05-09 05:24] LABS: HEMATOCRIT 39.4 % (42.0-52.0); MEAN CELL VOLUME 87.8 fl (81-97); MEAN PLATELET VOLUME 12.1 fl (7.4-10.4); PLATELET COUNT 114 K/uL (130-400); RED BLOOD COUNT 4.49 M/uL (4.40-5.70); RED CELL DISTRIBUTION WIDTH 16.7 % (11.5-14.5); WHITE BLOOD COUNT W/O DIFF 5.3 K/uL (4.2-12.2)
[2017-05-09 05:25] LABS: MEAN CORPUSCULAR HEMOGLOBIN 28.9 pg (27-33)
--- NOTE | 2017-05-09 05:53 | Emergency Department Record ---
History of Present Illness - General Chief complaint: ENT Stated complaint: EAR PAIN Time Seen by Provider: 05/09/17 04:52 Source: Patient Mode of Arrival: Ambulatory Limitations: No limitations - History of Present Illness MD complaint: Ear pain Onset/Timin -: Week(s) Location: R ear Severity scale (1-10): 10 Quality: Aching Consistency: Constant, Getting worse Associated Symptoms: Hearing loss - Related Data Home Medications Medication Instructions Recorded Confirmed Last Taken Apixaban [Eliquis] 5 mg PO BID 05/09/17 05/09/17 Unknown Aspirin [Aspir-Low] 81 mg PO DAILY 05/09/17 05/09/17 05/08/17 Previous Rx's Medication Instructions Recorded Acetaminophen [Tylenol 500Mg Tab] 1,000 mg PO Q6H PRN #0 tablet 09/29/16 Amoxicillin/Potassium Clav 1 tab PO BID #14 tab 05/09/17 [Augmentin 875-125 Tablet] Neomycin/Polymyxin B Sulf/Hc 4 drop OT QID #1 btl 05/09/17 [Cortisporin Otic] Allergies Allergy/AdvReac Type Severity Reaction Status Date / Time Sulfa (Sulfonamide Allergy SWELLING Verified 09/27/16 14:59 Antibiotics) (GENERAL) Travel Screening - Travel/Exposure Within Last 30 Days Have you traveled within the last 30 days?: No - Travel Symptoms Symptom Screening: None Review of Systems Constitutional: Denies: Chills, Fever Eyes: Denies: Eye discharge ENT: Reports: Ear pain. Denies: Throat pain Respiratory: Denies: Cough Past Medical History - SOCIAL HISTORY Smoking Status: Former smoker - RESPIRATORY Hx Respiratory Disorders: No - CARDIOVASCULAR Hx Cardio Disorders: Yes Hx Irregular Heartbeat: Yes (1 episode of A-fib) Comment:: bradycardia with sleep - NEURO Hx Neuro Disorders: No - GI Hx GI Disorders: No - Hx Genitourinary Disorders: No - ENDOCRINE Hx Endocrine Disorders: No - MUSCULOSKELETAL Hx Musculoskeletal Disorders: No - PSYCH Hx Psych Problems: No - HEMATOLOGY/ONCOLOGY Hx Hematology/Oncology Disorders: Yes Hx Anemia: Yes Hx Cancer: Yes (Leukemia- CML) Hx Chemotherapy: Yes (currently) Hx Blood Transfusions: Yes (platelets and PRBC) Hx Blood Transfusion Reaction: No Family Medical History Any Significant Family History?: Yes Hx Cancer: Mother Physical Exam - General Limitations: No limitations - ENT Ear exam: External canal tenderness (The R ear canal is still open to the TM and does not need a wick.) Course Vital Signs 05/09/17 04:43 Temperature 97.6 F Pulse Rate [ 41 L Pulse Ox Probe] Respiratory 20 Rate Blood Pressure 137/98 [Left Arm] Pulse Ox 99 Medical Decision Making - Lab Data Result diagrams: 05/09/17 05:16 Lab Results 05/09/17 Range/Units 05:16 WBC 5.3 (4.2-12.2) K/uL RBC 4.49 (4.40-5.70) M/uL Hgb 13.0 L (14.0-18.0) gm/dl Hct 39.4 L (42.0-52.0) % MCV 87.8 (81-97) fl MCH 28.9 (27-33) pg MCHC 33.0 (32-36) g/dl RDW 16.7 H (11.5-14.5) % Plt Count 114 L (130-400) K/uL MPV 12.1 H (7.4-10.4) fl Eosinophils % Not Reportable Basophils % Not Reportable Disposition Clinical Impression: External otitis of right ear Qualifiers: Otitis externa type: unspecified type Chronicity: acute Qualified Code(s): H60.501 - Unspecified acute noninfective otitis externa, right ear Disposition: Home, Self-Care Condition: (1) Good Instructions: Otitis Externa (ED) Additional Instructions: Please use Tylenol or Motrin for pain and please continue the Augmentin and Cortisporin as directed. Please see Dr. Farmer in the office in 1-2 days for recheck. Return to the ER for any increased pain, swelling, fever, or vomiting. Prescriptions: Amoxicillin/Potassium Clav [Augmentin 875-125 Tablet] 1 tab PO BID #14 tab Neomycin/Polymyxin B Sulf/Hc [Cortisporin Otic] 4 drop OT QID #1 btl Forms: Patient Portal Access Quality - Quality Measures Quality Measures: N/A - Blood Pressure Screening View Details: Yes Does Patient Have Any of the Following: No Blood Pressure Classification: Hypertensive Reading Systolic Measurement: 137 Diastolic Measurement: 98 Screening for High Blood Pressure: < Pre-Hypertensive BP, F/U Documented > [ G8950] Pre-Hypertensive Follow-up Interventions: Referral to alternative/primary care provider.
== END 2017-05-09 05:56 | disposition home or self-care (01) ==
LOC: ER 04:37
DX: H60.501 Unspecified acute noninfective otitis externa, right ear (principal)
CPT/HCPCS: 85025; 99283

== ENCOUNTER 2017-11-02 13:35 | Emergency (ER) | payer BC ==
--- NOTE | 2017-11-02 14:05 | Emergency Department Record ---
History of Present Illness - General Chief complaint: Lower Extremity Pain Stated complaint: RT LEG PAIN Time Seen by Provider: 11/02/17 14:03 Source: Patient Mode of Arrival: Ambulatory Limitations: No limitations - History of Present Illness Initial comments: 32 yo male presents with right thigh pain for one day. No injury. No swelling. He is concerned about DVT. He has cancer under treatment. He has never had a DVT but was warned by his oncologist that if he had leg pain get it checked. No calf pain. No shortness of breath. He had strep throat last week. No chest pain. Onset/Timin -: Days(s) Location: Right, Thigh History of Same: No Severity scale (1-10): 3 Quality: Other Consistency: Constant Improves with: Nothing Worsens with: Nothing Associated Symptoms: Denies other symptoms - Related Data Allergies Allergy/AdvReac Type Severity Reaction Status Date / Time Sulfa (Sulfonamide Allergy SWELLING Verified 11/02/17 13:48 Antibiotics) (GENERAL) Travel Screening - Travel/Exposure Within Last 30 Days Have you traveled within the last 30 days?: No Review of Systems Constitutional: Denies: Chills, Fever, Malaise, Weakness Eyes: Denies: Eye discharge ENT: Reports: Throat pain (last week). Denies: Congestion Respiratory: Reports: Cough (last week) Cardiovascular: Denies: Chest pain, Palpitations, Syncope Endocrine: Denies: Fatigue, Polydipsia, Polyuria Gastrointestinal: Denies: Abdominal pain, Diarrhea, Nausea, Vomiting Musculoskeletal: Denies: Back pain, Gout, Joint swelling, Myalgia Skin: Denies: Bruising, Change in color, Rash Neurological: Denies: Headache, Numbness, Weakness Psychiatric: Denies: Anxiety Hematological/Lymphatic: Denies: Blood Clots, Easy bleeding, Easy bruising, Swollen glands Past Medical History - SOCIAL HISTORY Smoking Status: Former smoker Alcohol Use: None Drug Use: None - RESPIRATORY Hx Respiratory Disorders: No - CARDIOVASCULAR Hx Cardio Disorders: Yes Hx Irregular Heartbeat: Yes (1 episode of A-fib) Comment:: bradycardia with sleep - NEURO Hx Neuro Disorders: No - GI Hx GI Disorders: No - Hx Genitourinary Disorders: No - ENDOCRINE Hx Endocrine Disorders: No - MUSCULOSKELETAL Hx Musculoskeletal Disorders: No - PSYCH Hx Psych Problems: No - HEMATOLOGY/ONCOLOGY Hx Hematology/Oncology Disorders: Yes Hx Anemia: Yes Hx Cancer: Yes (Leukemia- CML) Hx Chemotherapy: Yes Hx Blood Transfusions: Yes (platelets and PRBC) Hx Blood Transfusion Reaction: No Family Medical History Any Significant Family History?: Yes Hx Cancer: Mother Physical Exam - General General Appearance: Alert, Oriented x3, Cooperative, No acute distress - Head Head exam: Normal inspection - Eye Eye exam: Normal appearance, PERRL. negative: Conjunctival injection, Scleral icterus - ENT ENT exam: Normal exam, Mucous membranes moist Ear exam: Normal external inspection Nasal Exam: Normal inspection Mouth exam: Normal external inspection - Neck Neck exam: Normal inspection, Full ROM. negative: Lymphadenopathy, Tenderness - Respiratory Respiratory exam: Normal lung sounds bilaterally. negative: Respiratory distress, Rhonchi, Stridor, Wheezes - Cardiovascular Cardiovascular Exam: Regular rate, Normal rhythm, Normal heart sounds - GI/Abdominal GI/Abdominal exam: Soft. negative: Tenderness - Rectal Rectal exam: Deferred - exam: Deferred - Extremities Extremities exam: Normal inspection, Full ROM, Normal capillary refill. negative: Calf tenderness, Joint swelling, Pedal edema, Tenderness - Back Back exam: Reports: Normal inspection, Full ROM. Denies: CVA tenderness (R), CVA tenderness (L), Muscle spasm, Rash noted, Tenderness - Neurological Neurological exam: Alert, Oriented X3 - Psychiatric Psychiatric exam: Normal affect, Normal mood - Skin Skin exam: Dry, Intact, Normal color, Warm Course Vital Signs 11/02/17 13:44 Temperature 97.4 F L Pulse Rate 62 Respiratory 18 Rate Blood Pressure 123/70 Pulse Ox 96 - Reevaluation(s) Reevaluation #1: 11/02/17 14:51 The venous doppler was negative for any acute or chronic DVT 11/02/17 14:52 No acute changes in the vitals 11/02/17 15:54 The doppler was negative for DVT DC to follow up with the PCP Disposition Disposition: Discharge Clinical Impression: Thigh pain Qualifiers: Laterality: right Qualified Code(s): M79.651 - Pain in right thigh Disposition: Home, Self-Care Condition: (1) Good Instructions: Leg Pain (ED) Additional Instructions: Call your doctor for close follow up this week Return if you have any increased pain or any swelling Forms: Patient Portal Access Time of Disposition: 14:52 Quality - Quality Measures Quality Measures: N/A - Blood Pressure Screening Does Patient Have Any of the Following: No Blood Pressure Classification: Pre-Hypertensive BP Reading Systolic Measurement: 123 Diastolic Measurement: 70 Screening for High Blood Pressure: < Pre-Hypertensive BP, F/U Documented > [ G8950] Pre-Hypertensive Follow-up Interventions: Referral to alternative/primary care provider.
--- NOTE | 2017-11-04 07:22 | US VENOUS DOPPLER REPORT ---
EXAM: EMERGENCY VENOUS DOPPLER ULTRASOUND OF THE RIGHT LOWER EXTREMITY HISTORY: PAIN IN THIGH, POSSIBLE DVT. TECHNIQUE: Emergency venous Doppler ultrasound of the right lower extremity was performed with the venous anatomy evaluated from the right inguinal region down through the thigh. Color flow and spectral analysis Doppler was utilized. Flow augmentation and compression maneuvers were utilized in the thigh and popliteal region as well. Comparison: No prior venous Doppler ultrasound with which to compare. FINDINGS: The venous Doppler ultrasound of the right lower extremity appears negative. Flow was seen throughout from the inguinal region down through the calf. Normal compression and flow augmentation seen in the thigh and popliteal region as well. IMPRESSION: NEGATIVE VENOUS DOPPLER ULTRASOUND OF THE RIGHT LOWER EXTREMITY WITH NO DVT IDENTIFIED. JOB NUMBER: [id number] [facility]
== END 2017-11-02 16:01 | disposition home or self-care (01) ==
LOC: ER 13:35
DX: M79.651 Pain in right thigh (principal); I48.91 Unspecified atrial fibrillation; F17.210 Nicotine dependence, cigarettes, uncomplicated
CPT/HCPCS: 99283